=== PATIENT | female | born 1955 | race Two or more races ===

== ENCOUNTER 2020-06-07 | Outpatient (CLI) | payer OTHER | END 2020-06-07 08:46 | disposition home or self-care (01) | LOC: PPH VACUNA | PROVIDERS: ATTEND Emergency Medicine Pediatric Emergency Medicine | DX: Z23 Encounter for immunization (principal) ==

== ENCOUNTER 2025-01-31 08:38 | Outpatient (CLI) | payer OTHER ==
[~2025-01-31] VITALS: Ht 157.5 cm; Wt 72.6 kg
[2025-01-31 09:09] VITALS: BP 135/77
[2025-01-31 10:02] LABS: BASO % 0.4 % (0.1-1.2); EOS # 0.06 (0.04-0.54); EOS % 1.3 % (0.7-7.0); LYMPH # 1.07 (1.18-3.74); LYMPH % 23.4 % (19.3-53.1); MEAN PLATELET VOLUME 10.10 fl (9.4-12.4); MONO # 0.40 (0.24-0.82); MONO % 8.8 % (4.7-12.5); NEUT # 3.00 (1.56-6.13); NEUT % 65.7 % (34.0-71.1); RED CELL DISTRIBUTION WIDTH 12.5 % (11.6-14.4)
[2025-01-31 10:12] LABS: URINE APPEARANCE Clear; URINE BILIRRUBIN Negative (NEGATIVE); URINE BLOOD Negative; URINE COLOR Yellow; URINE GLUCOSE Negative (NEGATIVE); URINE KETONE Negative (NEGATIVE); URINE LEUKOCYTE Trace; URINE NITRATE Negative; URINE PROTEIN Negative (NEGATIVE); URINE UROBILINOGEN 0.2 E.U./dl
[2025-01-31 10:13] LABS: URINE BACTERIA 16.7 uL (0.0-1933); URINE EPITHELIAL CELLS 3.9 uL (0.0-38.8); URINE RBC 6.4 uL (0.0-20.8); URINE WBC 4.5 uL (0.0-23.2)
[2025-01-31 10:26] LABS: INR 1.02
[2025-01-31 11:04] LABS: URINE CAST 0.00 uL (0.0-1.40)
[2025-01-31 11:05] LABS: COL EPI 80 SECONDS (82-175)
[2025-01-31 11:17] LABS: ALT/SGPT 35.0 U/L (12-78); AST/SGOT 24.0 U/L (15-37); BILIRUBIN TOTAL 0.41 mg/dL (0.3-1.2); BUN CREA RATIO 13.0 (7.0-25.0); CREATININE SERUM 0.97 mg/dL (0.55-1.02); GFR 56.77; GLOBULINA 4.7 G/DL (2.4-3.5); GLUCOSE FASTING 108.0 mg/dL (65-100); OSMOLALITY SERUM 286.0 MOSM/KG (275-295); TSH 2.3 uIU/mL (0.358-3.74)
[2025-02-01 13:11] LABS: CALCIUM IONIZED 5.1 mg/dL (4.5-5.6)
== END 2025-01-31 08:49 | disposition home or self-care (01) ==
LOC: RAD 08:38
PROVIDERS: ATTEND Orthopaedic Surgery
DX: D64.9 Anemia, unspecified (principal); D68.9 Coagulation defect, unspecified; N39.0 Urinary tract infection, site not specified; Z22.322 Carrier or suspected carrier of Methicillin resistant Staphylococcus aureus; E55.9 Vitamin D deficiency, unspecified; M85.9 Disorder of bone density and structure, unspecified; E56.1 Deficiency of vitamin K; E21.3 Hyperparathyroidism, unspecified; E88.9 Metabolic disorder, unspecified; M81.8 Other osteoporosis without current pathological fracture; E03.9 Hypothyroidism, unspecified; D68.8 Other specified coagulation defects; E11.9 Type 2 diabetes mellitus without complications; Z76.89 Persons encountering health services in other specified circumstances; I10 Essential (primary) hypertension

== ENCOUNTER 2025-02-03 12:15 | Inpatient (IN) | payer OTHER ==
[~2025-02-03] VITALS: Ht 157.5 cm; Wt 72.6 kg
[2025-02-03] MEDS ORDERED: SYNTHROID75 MCG PO (13:04)
[2025-02-03] MEDS ORDERED: PREGABALIN75 MG PO (13:04)
[2025-02-03] MEDS ORDERED: PEPCID40 MG PO (13:04)
[2025-02-03] MEDS ORDERED: OMEPRAZOLE40 MG PO (13:05)
[2025-02-04 09:36] VITALS: BP 135/77
[2025-02-07] MEDS ORDERED: LIDOCAINE HCL 1%/EPINEPHRINE 20ML VIAL IJ ONE (06:34)
[2025-02-07] MEDS ORDERED: BUPIVACAINE HCL/MPF 0.5% 30ML VIAL ONE ×2 (06:34→10:22)
[2025-02-07] MEDS ORDERED: VANCOMYCIN HCL 1,000 MG VIAL ONE (06:34)
[2025-02-07] MEDS ORDERED: KETOROLAC TROMETHAMINE 60 MG VIAL IM ONE (06:34)
[2025-02-07] MEDS ORDERED: MORPHINE SULFATE 4 MG/ML CARTRIDGE IV ONE (06:45)
[2025-02-07] MEDS ORDERED: ISOPROPYL ALCOHOL 30 ML OUNCE TOP ONE (06:45)
[2025-02-07] MEDS ORDERED: CEFOXITIN SODIUM 2,000 MG VIAL IV ONE (06:50)
[2025-02-07] MEDS ORDERED: TRANEXAMIC ACID 100MG/1ML (1000MG) AMPUL ONE (06:50)
[2025-02-07] MEDS ORDERED: BUPIVACAINE HCL 30 ML VIAL IV ONE (10:30)
[2025-02-07] MEDS ORDERED: PROMETHAZINE HCL 50 MG/ML AMPUL IM PRN (12:00)
[2025-02-07] MEDS ORDERED: SODIUM CHLORIDE 0.45 % 1,000 ML IV SCH (12:00)
[2025-02-07] MEDS ORDERED: ONDANSETRON HCL 2 MG/ML VIAL IV PRN (12:00)
[2025-02-07] MEDS ORDERED: ONDANSETRON 4 MG TAB.RAPDIS PO PRN (12:00)
[2025-02-07] MEDS ORDERED: TRAMADOL HCL 50 MG TABLET PO PRN (12:00)
[2025-02-07] MEDS ORDERED: PANTOPRAZOLE SODIUM 40 MG TABLET.DR PO NR (12:00)
[2025-02-07] MEDS ORDERED: ONDANSETRON HCL 2 MG/ML VIAL ONE (12:07)
[2025-02-07] MEDS ORDERED: ACETAMINOPHEN 325 MG TABLET PO SCH (13:00)
[2025-02-07] MEDS ORDERED: KETOROLAC TROMETHAMINE 10 MG TABLET PO SCH (13:00)
[2025-02-07 15:56] VITALS: BP 128/74; O2SAT 98
[2025-02-07] MEDS ORDERED: CELECOXIB 200 MG CAPSULE PO SCH (17:00)
[2025-02-07] MEDS ORDERED: CEFAZOLIN SODIUM 1,000 MG VIAL IV SCH (17:00)
[2025-02-08 01:35] VITALS: BP 113/69; O2SAT 98
[2025-02-08 06:23] LABS: BASO % 0.2 % (0.1-1.2); EOS # 0.03 (0.04-0.54); EOS % 0.6 % (0.7-7.0); LYMPH # 1.00 (1.18-3.74); LYMPH % 19.0 % (19.3-53.1); MEAN PLATELET VOLUME 10.20 fl (9.4-12.4); MONO # 0.62 (0.24-0.82); MONO % 11.8 % (4.7-12.5); NEUT # 3.57 (1.56-6.13); NEUT % 68.0 % (34.0-71.1); RED CELL DISTRIBUTION WIDTH 12.2 % (11.6-14.4)
[2025-02-08] MEDS ORDERED: PANTOPRAZOLE SODIUM 40 MG TABLET.DR PO SCH (09:00)
[2025-02-08] MEDS ORDERED: RIVAROXABAN 10 MG TAB PO SCH (09:00)
[2025-02-08 09:34] VITALS: BP 147/66; O2SAT 99
[2025-02-08] MEDS ORDERED: IRON FUM,PS/FOLIC/BCOMP,C NO.9 1 CAP CAPSULE PO SCH (11:36)
[2025-02-08 11:48] LABS: COVID-19 AG NEGATIVE (NEGATIVE)
[2025-02-08 12:22] LABS: BUN CREA RATIO 18.0 (7.0-25.0); CREATININE SERUM 0.84 mg/dL (0.55-1.02); GFR 67.03; GLUCOSE FASTING 147.0 mg/dL (65-100); OSMOLALITY SERUM 279.0 MOSM/KG (275-295)
[2025-02-08 13:04] VITALS: BP 124/72
[2025-02-08] MEDS ORDERED: PATIENTS OWN MEDICATION (MEDICAMENTO EN PISO) IV ONE (13:45)
[2025-02-08 14:20] VITALS: BP 134/67; O2SAT 98
[2025-02-08] MEDS ORDERED: ENALAPRILAT DIHYDRATE 1.25 MG/ML VIAL IV PRN (14:45)
[2025-02-08 15:59] VITALS: BP 137/73; O2SAT 95
[2025-02-09 01:30] VITALS: BP 114/68; O2SAT 98
[2025-02-09] MEDS ORDERED: LEVOTHYROXINE SODIUM 75 MCG TABLET PO SCH (06:00)
[2025-02-09 06:43] LABS: BASO % 0.2 % (0.1-1.2); EOS # 0.00 (0.04-0.54); EOS % 0.0 % (0.7-7.0); LYMPH # 1.01 (1.18-3.74); LYMPH % 18.6 % (19.3-53.1); MEAN PLATELET VOLUME 10.20 fl (9.4-12.4); MONO # 0.47 (0.24-0.82); MONO % 8.6 % (4.7-12.5); NEUT # 3.93 (1.56-6.13); NEUT % 72.2 % (34.0-71.1); RED CELL DISTRIBUTION WIDTH 12.6 % (11.6-14.4)
[2025-02-09] MEDS ORDERED: SENNA/DOCUSATE SODIUM 1 TAB TABLET PO SCH (09:00)
[2025-02-09 09:05] VITALS: BP 138/85; O2SAT 98
[2025-02-09 16:30] VITALS: BP 125/71; O2SAT 96
[2025-02-10 00:30] VITALS: BP 120/73; O2SAT 99
[2025-02-10 00:31] VITALS: BP 154/90; O2SAT 96
[2025-02-10 00:33] VITALS: BP 120/73; O2SAT 99
[2025-02-10 07:30] VITALS: BP 153/72; O2SAT 96
[2025-02-10 10:35] LABS: BASO % 0.2 % (0.1-1.2); EOS # 0.02 (0.04-0.54); EOS % 0.3 % (0.7-7.0); LYMPH # 0.85 (1.18-3.74); LYMPH % 13.4 % (19.3-53.1); MEAN PLATELET VOLUME 9.50 fl (9.4-12.4); MONO # 0.45 (0.24-0.82); MONO % 7.1 % (4.7-12.5); NEUT # 4.98 (1.56-6.13); NEUT % 78.7 % (34.0-71.1); RED CELL DISTRIBUTION WIDTH 12.8 % (11.6-14.4)
[2025-02-10 17:43] VITALS: BP 145/78; O2SAT 99
== END 2025-02-10 19:32 | disposition home or self-care (01) | DRG 470 ==
LOC: O/R 02-07 09:00 → SURG 02-07 11:45 → SURH 02-07 12:12 → SURG 02-07 12:14 → SURH 02-10 19:32
PROVIDERS: ADMIT Orthopaedic Surgery; ATTEND Orthopaedic Surgery
PROC: 0SRD0J9 Replacement of Left Knee Joint with Synthetic Substitute, Cemented, Open Approach (ICD-10-PCS; principal; 2025-02-07 11:45)
DX: M17.12 Unilateral primary osteoarthritis, left knee (principal)